=== PATIENT | male | born 1940 | race Caucasian/White ===

== ENCOUNTER → 2016-09-23 | Outpatient (CLI) | payer OTHER ==
[~2016-09-23] MED LIST: ALBUTEROL2.5 MG/0.5 INH; ASMANEX220 MC1 INH; ASPIRIN325 PO; ASPIRIN81 M2 PO; ATORVASTATIN CA40 MG PO; CLOPIDOGREL75 MG PO; COZAAR 25 MG TA25 M1 PO; DUONEB 2.5-0.5 M3 ML INH; EFFIENT10 MG PO; HYDROCODONE-AP1 EAC6 PO; LOPRESSOR25 PO; MUCINEX TA600 MG/TA2 PO; PREDNISONE 5 MG5 M1 PO; PROAIR HFA8.5 GM INH; SENOKOT-S1 TA1 PO; SPIRIVA INH; SYMBICORT160 MCG/4. INH; ZYRTEC10 MG PO
--- NOTE | ~2016-09-23 | 2DMMODE ---
[facility] [employer] [place] [address] 2 D/M-MODE ECHOCARDIOGRAM Name: DASHAWN SINGH Room #: REG [facility]#: [id number] Admission: 09/23/16 Attend Phys: Alan Cotton Discharge: Date of : 42 Date of Service: 09/23/16 1324 Report #: [id number] THIS REPORT FOR: //name// APPROVED REPORT Study performed: 09/23/2016 11:21:12 EXAM: Comprehensive 2D, Doppler, and color-flow Echocardiogram Patient Location: Out-Patient Blood Pressure: 85/53 mmHg HR: 68 bpm Rhythm: NSR Other Information Study Quality: Adequate Indications Syncope Hx: CA, stent, COPD 2D Dimensions RVDd: 38.22 mm LVEF(%): 31.17 (>50%) IVSd: 14.42 (7-11mm) LVOT Diam: 20.34 (18-24mm) LVDd: 42.16 mm PWd: 13.39 (7-11mm) LVDs: 36.04 (25-40mm) Aortic Root: 39.54 mm Longoria's LVEF: 31.17 % Volumes Left Atrial Volume (Systole) Single Plane 4CH: 60.10 mL Single Plane 2CH: 49.10 mL LA ESV Index: 31.00 mL/m2 Aortic Valve AoV Peak Wayne.: 1.11 m/s AO Peak Gr.: 4.89 mmHg LVOT Max P.65 mmHg LVOT Max V: 0.81 m/s ANDREY Vmax: 2.39 cm2 Mitral Valve E/A Ratio: 0.6 [facility] [address] [place] [address] 2 D/M-MODE ECHOCARDIOGRAM Name: DASHAWN SINGH Room #: [id number] Admission: 09/23/16 Attend Phys: Alan Cotton Discharge: Date of : 42 Date of Service: 09/23/16 1324 Report #: [id number] MV Decel. Time: 178.81 ms MV E Max Wayne.: 0.70 m/s MV A Wayne.: 1.12 m/s MV PHT: 51.85 ms IVRT: 101.50 ms Pulmonary Valve PV Peak Wayne.: 0.83 m/s PV Peak Gr.: 2.73 mmHg Pulmonary Vein P Vein S: 53.5 m/s P Vein A: 23.72 m/s P Vein D: 27.9 m/s P Vein A Dur.: 147.6 msec Tricuspid Valve TR Peak Wayne.: 2.01 m/s RAP Estimate: 10.00 mmHg TR Peak Gr.: 16.18 mmHg RVSP: 26.00 mmHg Left Ventricle The left ventricle is normal size. Possible hypokinesis involving base of inferior and anterior wall hypokinesis. Mild concentric left ventricular hypertrophy. Left ventricular systolic function is mildly decreased. LVEF is 45%. Grade I - abnormal relaxation pattern. Right Ventricle The right ventricle is normal size. The right ventricular systolic function is normal. Atria The left atrium size is normal. The right atrium size is normal. Aortic Valve Aortic valve is mildly calcified. No aortic regurgitation is present. There is no aortic valvular stenosis. Mitral Valve Mild mitral annular calcification. Mild mitral regurgitation. No evidence of mitral valve stenosis. Tricuspid Valve The tricuspid valve is normal in structure. There is trace tricuspid regurgitation. The right atrial pressure is estimated at 10 mmHg. Estimated PAP is 26mmHg. Pulmonic Valve Pulmonic valve is not well visualized. [address] [address] 2 D/M-MODE ECHOCARDIOGRAM Name: SAMANTHADASHAWN GUILHERME Room #: REG [facility]#: [id number] Admission: 09/23/16 Attend Phys: Alan Cotton Discharge: Date of : 42 Date of Service: 09/23/16 1324 Report #: [id number] Great Vessels Aortic root is mildly dilated. Ascending aorta is not well visualized. IVC is dilated and collapses >50% with inspiration. Pericardium There is no pericardial effusion. <Conclusion> Left ventricular systolic function is mildly decreased. Possible hypokinesis involving base of inferior and anterior wall hypokinesis. LVEF 45%. Aortic valve is mildly calcified. No aortic regurgitation is present. Mild mitral annular calcification. Mild mitral regurgitation. Aortic root is mildly dilated. Pulmonary artery pressure could not be reliably ascertained. There is no pericardial effusion. <ELECTRONICALLY SIGNED> By: Elijah Santillan MD, [facility] 09/23/16 1324 1324 132 Elijah Santillan MD, FACC /INF
== END ==
LOC: CV 09-12 13:27
DX: R55 Syncope and collapse (principal); J44.9 Chronic obstructive pulmonary disease, unspecified; I25.2 Old myocardial infarction; Z95.828 Presence of other vascular implants and grafts